=== PATIENT | male | born 1955 | race African-American/Black ===

== ENCOUNTER 2020-12-11 12:58 | Emergency (ER) | payer OTHER ==
[~2020-12-11] VITALS: Ht 177.8 cm; Wt 63.0 kg
[2020-12-11 13:48] LABS: CHLORIDE 103 mEq/L (98-107)
[2020-12-11 13:49] LABS: BASOPHILS % 0.6 % (0.0-2.0); EOSINOPHILS % 1.9 % (0.0-5.0); HEMATOCRIT. 32.4 % (42.0-52.0); HEMOGLOBIN. 10.8 g/dL (14.0-18.0); LYMPHOCYTES % 25.2 % (20.0-50.0); MEAN CORPUSCULAR HEMOGLOBIN 30.1 pg (28.0-32.0); MEAN PLATELET VOLUME 7.3 fl (7.4-10.4); MONOCYTES % 9.8 % (2.0-8.0); NEUTROPHILS % 62.5 % (40.0-76.0); PLATELET 252 x1000/uL (130-400); RED CELL DISTRIBUTION WIDTH 13.5 % (11.6-14.6)
[2020-12-11 13:54] LABS: ETHANOL BLOOD < 10 mg/dL
[2020-12-11 14:02] LABS: CLARITY URINE CLEAR (CLEAR); COLOR URINE YELLOW (YELLOW); KETONES URINE NEGATIVE (NEGATIVE); LEUKOCYTE ESTERASE URINE TRACE (NEGATIVE); NITRITE URINE NEGATIVE (NEGATIVE); OCCULT BLOOD URINE NEGATIVE (NEGATIVE); PH URINE 7.5 (4.5-8.0); PROTEIN URINE NEGATIVE (NEGATIVE); SPECIFIC GRAVITY URINE 1.014 (1.005-1.030); UROBILINOGEN URINE 0.2 E.U./dL (0.2-1.0)
[2020-12-11 14:18] LABS: *AMPHETAMINES SCREEN URINE NEGATIVE (NEGATIVE); *BENZODIAZEPINES SCREEN URINE NEGATIVE (NEGATIVE); *COCAINE SCREEN URINE NEGATIVE (NEGATIVE); CANNABINOID URINE SCREEN NEGATIVE (NEGATIVE); METHADONE URINE SCREEN NEGATIVE (NEGATIVE); OPIATES URINE SCREEN NEGATIVE (NEGATIVE)
[2020-12-11 14:19] LABS: PHENCYCLIDINE URINE SCREEN NEGATIVE (NEGATIVE)
[2020-12-11 14:21] LABS: *BARBITURATES SCREEN URINE NEGATIVE (NEGATIVE)
[2020-12-11 15:38] LABS: PROTHROMBIN TIME 10.8 sec (9.6-11.0)
[2020-12-11 17:16] VITALS: BP 122/75
== END 2020-12-11 18:12 | disposition short-term general hospital (02) ==
LOC: ER 12:58
DX: G25.5 Other chorea (principal); F14.10 Cocaine abuse, uncomplicated; F12.10 Cannabis abuse, uncomplicated; I10 Essential (primary) hypertension; J44.1 Chronic obstructive pulmonary disease with (acute) exacerbation; Z88.0 Allergy status to penicillin; Z86.59 Personal history of other mental and behavioral disorders; Z98.890 Other specified postprocedural states; Z72.3 Lack of physical exercise
CPT/HCPCS: 36415; 80053; 80305; 80320; 81003; 85025; 93005; 99285; G0480